=== PATIENT | female | born 1990 | race African-American/Black ===

== ENCOUNTER 2017-07-28 09:33 | Emergency (ER) | payer OTHER ==
[~2017-07-28] VITALS: Ht 167.6 cm; Wt 65.3 kg
[2017-07-28 09:43] VITALS: Ht 167.6 cm; Wt 65.3 kg
[2017-07-28 11:36] VITALS: BP 116/80
== END 2017-07-28 12:40 | disposition home or self-care (01) ==
LOC: ED 09:33
DX: J06.9 Acute upper respiratory infection, unspecified (principal); M54.6 Pain in thoracic spine; M25.511 Pain in right shoulder
CPT/HCPCS: J7512; J7613; J7644

== ENCOUNTER 2018-08-24 09:31 | Emergency (ER) | payer OTHER ==
[~2018-08-24] VITALS: Ht 162.6 cm; Wt 65.8 kg
[2018-08-24 09:34] VITALS: Ht 162.6 cm; Wt 65.8 kg
[2018-08-24 11:13] VITALS: BP 118/74
== END 2018-08-24 11:11 | disposition home or self-care (01) ==
LOC: ED 09:31
DX: J34.89 Other specified disorders of nose and nasal sinuses (principal)

== ENCOUNTER 2019-12-30 16:24 | Emergency (ER) | payer OTHER ==
[~2019-12-30] VITALS: Ht 160 cm; Wt 64.9 kg
[2019-12-30 16:28] VITALS: Ht 160 cm; Wt 64.9 kg
[2019-12-30 17:23] VITALS: BP 116/80
== END 2019-12-30 17:23 | disposition home or self-care (01) ==
LOC: ED 16:24
DX: S61.012A Laceration without foreign body of left thumb without damage to nail, initial encounter (principal); X58.XXXA Exposure to other specified factors, initial encounter; Y93.89 Activity, other specified; Y92.89 Other specified places as the place of occurrence of the external cause; Y99.8 Other external cause status
CPT/HCPCS: 90715